=== PATIENT | female | born 1955 | race Caucasian/White ===

== ENCOUNTER 2016-11-22 15:42 | Emergency (ER) | payer OTHER ==
--- NOTE | ~2016-11-22 | ER ---
PATIENT'S NAME: ARDEN KEY [facility] AGE: 60 Y [address] ROOM: [place] [id number] LOCATION: [facility] ADMIT DATE: 11/22/2016 ER/Outpatient Report DISCHARGE DATE: 11/22/2016 FAMILY PHYSICIAN: Lazaro Mckay MD ATTENDING PHYSICIAN: Poncho Herman HISTORY OF PRESENT ILLNESS: This patient is a 60-year-old female who presented to the emergency room with neutropenia and low-grade fever. She has had temperature off and on, the highest I believe was 99.6. She has also had some lower abdominal pain, but no nausea or vomiting. She has been constipated. She initially saw Dr. Herman who evaluated her here in the emergency department. See Dr. Herman's dictation in regard to the chief complaint, history of present illness, past medical history, physical exam, laboratory, x-ray study results. Dr. Herman did place a call to her personal physician in [place]. It was a Dr. Whit Stiles. Dr. Whit Stiles did return the call. I did take over Dr. Herman's care of this patient at shift change. Dr. Whit Stiles recommended that we be aware of and treat neutropenic fever if the temperature is greater than 100.4. She also stated to be aware that she may develop a bowel obstruction because of the mass in her pelvis. This patient's white count was 0.9 with an ANC of 0.1. Temperature was normal. The patient's personal physician did not recommend treatment at this time. We thus discharged the patient home. IV fluids were given in the emergency department. Fluids and diet at home as tolerated. Continue present home medications and care. Return to the emergency department if temperature is 100.4 or greater. See personal physician as needed or as scheduled. FINAL DIAGNOSIS: Neutropenia with intermittent low-grade fever, the highest being 99.6. She also had lower abdominal pain. She is on a clinical trial for her cancer treatment. Last treatment was this past . Her personal physician is aware of her condition and stated that she would be neutropenic for 5-6 days post clinical trial tumor treatment. MD JOHANA BAER/modl /[id number] d: 11/23/16 0131 t: 11/23/16 1820, OUTPATIENT REPORT
--- NOTE | ~2016-11-22 | ER ---
PATIENT'S NAME: [facility] AGE: 60 Y [address] ROOM: [place] [address] LOCATION: [facility] ADMIT DATE: 11/22/2016 ER/Outpatient Report DISCHARGE DATE: 11/22/2016 FAMILY PHYSICIAN: Lazaro Mckay MD ATTENDING PHYSICIAN: Poncho Herman TIME OF ARRIVAL: 1557 hours. TIME OF EVALUATION: 1620 hours. CHIEF COMPLAINT: Neutropenia. HISTORY OF PRESENT ILLNESS: The patient is a 60-year-old female, who presents to the emergency department today with a chief complaint of neutropenia. She reports that she had lab work drawn and they called her and told her that her levels were low. She was told to come to the emergency department. She reports that she has had a low- grade fever, the highest has been 99.6 over the past 48 hours. Denies any other symptoms. She actually feels good right now. Denies any cough. No chest pain. No shortness of breath. No nausea, vomiting. No diarrhea or constipation. No abdominal pain. No urinary symptoms. No headache. PAST MEDICAL HISTORY: Fallopian tube cancer, currently undergoing clinical trial at [facility] in [place], [place]; hypertension; gastroesophageal reflux disease; recurrent ascites. PAST SURGICAL HISTORY: , biopsies x5, paracentesis, port placement, complete hysterectomy, appendectomy. SOCIAL HISTORY: The patient denies any tobacco, alcohol, or illicit drug use. ALLERGIES: TO CODEINE, LISINOPRIL, AND CARBOPLATIN. MEDICATIONS: Please see list. PRIMARY CARE DOCTOR: Dr. Mckay in [place]. Sees Dr. De Paz for Heme-Onc here. Also sees Dr. Santiago in [place], [place]. PATIENT'S NAME: [facility] AGE: 60 Y [address] ROOM: [place] [address] LOCATION: [facility] ADMIT DATE: 11/22/2016 ER/Outpatient Report DISCHARGE DATE: 11/22/2016 FAMILY PHYSICIAN: Lazaro Mckay MD ATTENDING PHYSICIAN: Poncho Herman REVIEW OF SYSTEMS: All systems are reviewed by myself and negative with the exception of those discussed in the HPI and past medical history. PHYSICAL EXAMINATION: VITAL SIGNS: Weight 86.1 kg, blood pressure 159/97, pulse 81, respiratory rate 15, temperature 98.2, oxygen saturation 98% on room air. GENERAL: The patient is a 60-year-old female, appears of stated age, in no acute distress. HEENT: Head: Normocephalic and atraumatic. Pupils are equal, round, and reactive to light. Extraocular motions are intact. Nares are patent bilaterally. TMs are clear. Oropharynx is clear. NECK: Supple. There is no nuchal rigidity. CARDIOVASCULAR: Regular rate and rhythm. No murmurs, rubs, or gallops. LUNGS: Clear to auscultation bilaterally. No wheezes, rales, or rhonchi. ABDOMEN: Soft, nontender, and nondistended. No rebound, rigidity, or guarding. MUSCULOSKELETAL: The patient moves all 4 extremities. SKIN: Warm and dry. There is no rashes or lesions noted. LABS AND X-RAYS: Labs and x-rays are obtained. Procalcitonin is less than 0.05. A 2-view chest x-ray shows no acute process. Lactate is normal. CBC is normal except for white blood cell count of 0.9, hemoglobin 9.4, hematocrit 28.6, ANC 0.1. CMP is unremarkable. LFTs are normal. Urinalysis shows 100 protein, 25 blood otherwise unremarkable. IMPRESSION: 1. Neutropenia. 2. Fallopian tube cancer, undergoing clinical trial at [facility]. 3. Initial visit. EMERGENCY DEPARTMENT COURSE: The patient brought back to the examination room. Seen and evaluated by myself. IV is established. Laboratory analysis obtained as described above. The patient was given 1 L normal saline. I have discussed results with the patient. She does have an excellent overall clinical appearance at this time. She is neutropenic, but over the past 48 hours, she has not had any fever greater than 99.6. I have discussed the case with the Oncology fellow at [facility]. He does report he will review the case and discuss with his attending and will call us back. I have discussed the case with Dr. Benavidez as shift change. He will follow up on the recommendation from the patient's primary on-call just for any recommendations that they have. PATIENT'S NAME: [facility] AGE: 60 Y [address] ROOM: [place] [address] LOCATION: [facility] ADMIT DATE: 11/22/2016 ER/Outpatient Report DISCHARGE DATE: 11/22/2016 FAMILY PHYSICIAN: Lazaro Mckay MD ATTENDING PHYSICIAN: Poncho Herman DISPOSITION: Satish Benavidez. DO NORIS ROLDAN/modl /[id number] d: 11/23/16 1243 t: 11/29/16 0601, OUTPATIENT REPORT
[2016-11-22 16:58] LABS: HEMATOCRIT 28.6 % (33.0-46.0); HEMOGLOBIN 9.4 g/dL (10.0-15.0); MCH 33.5 pg (27.0-34.0); MCHC 32.9 gm/dL (32.0-36.5); MCV 101.8 fl (83.0-98.0); MPV 8.7 fl (9.4-12.4); PLATELET COUNT 197 K/uL (150-450); RDW-CV 14.7 % (11.9-14.6)
[2016-11-22 17:00] LABS: RBC 2.81 M/uL (3.50-5.50); WBC 0.9 K/uL (4.0-11.0)
[2016-11-22 17:17] LABS: ALK PHOS 56 IU/L (33-138); ALT 17 IU/L (12-78); ANION GAP 14.6 (10.0-19.0); AST 17 IU/L (10-40); BLOOD UREA NITROGEN 16 mg/dL (6-24); CALCIUM 8.9 mg/dL (8.5-10.5); CHLORIDE 101 mMol/L (96-110); CO2 27 mMol/L (22-32); CREATININE 0.9 mg/dL (0.5-1.1); ESTIMATED GFR (MDRD EQUATION) > 60; POTASSIUM 3.6 mMol/L (3.7-5.1); SODIUM 139 mMol/L (135-145); TOTAL BILIRUBIN 0.3 mg/dL (0.0-1.5); TOTAL PROTEIN 7.2 g/dL (6.0-8.4)
[2016-11-22 17:19] LABS: BILIRUBIN URINE NEGATIVE (NEGATIVE); BLOOD URINE 25 /UL (NEGATIVE); GLUCOSE URINE NEGATIVE (NEGATIVE); KETONE URINE NEGATIVE (NEGATIVE); LEUKOCYTES URINE NEGATIVE /UL (NEGATIVE); NITRITE URINE NEGATIVE (NEGATIVE); PROTEIN URINE 100 mg/dL (NEGATIVE); SPEC GRAVITY URINE 1.005 (1.003-1.035); UROBILINOGEN URINE NORMAL (NORMAL)
[2016-11-22 17:32] LABS: COLOR URINE YELLOW (YELLOW); TURBIDITY URINE CLEAR (CLEAR)
[2016-11-22 17:40] LABS: BACTERIA URINE NEGATIVE (NEGATIVE); EPITHELIAL URINE 0-2 #/HPF (NEGATIVE); RBC URINE 0-2 #/HPF (NEGATIVE); WBC URINE 0-2 #/HPF (NEGATIVE)
[2016-11-22 17:57] LABS: ABSOLUTE NEUTROPHIL CT (ANC) 0.1 K/uL (1.8-7.8); LYMPHOCYTE # 0.8 K/uL (0.8-4.0); LYMPHOCYTE % 87 %; SEGMENTED NEUTROPHIL # 0.1 K/uL (1.8-7.8); SEGMENTED NEUTROPHIL % 5 %
== END 2016-11-22 18:57 | disposition disaster alternative care site (69) ==
LOC: GMED 15:42
PROVIDERS: Emergency Medicine
DX: D70.9 Neutropenia, unspecified (principal); R50.81 Fever presenting with conditions classified elsewhere; R10.30 Lower abdominal pain, unspecified; C57.00 Malignant neoplasm of unspecified fallopian tube; I10 Essential (primary) hypertension; K21.9 Gastro-esophageal reflux disease without esophagitis; Z90.49 Acquired absence of other specified parts of digestive tract; Z98.890 Other specified postprocedural states; Z88.5 Allergy status to narcotic agent; Z88.8 Allergy status to other drugs, medicaments and biological substances; Z79.899 Other long term (current) drug therapy
CPT/HCPCS: J7030